=== PATIENT | female | born 1965 | race Caucasian/White ===

== ENCOUNTER → 2018-07-03 | Outpatient (CLI) | payer BC ==
[~2018-07-03] MED LIST: ALBU90OI6; Advil200 M1; FLUSAL1005 INH; Multiple Vitam1 EAC1; RANI150
== END ==
LOC: LAB SHORT 14:09 → LAB 14:09
DX: R30.0 Dysuria (principal)
CPT/HCPCS: 87086

== ENCOUNTER → 2018-07-07 | Outpatient (CLI) | payer BC | LOC: LAB 19:30 → LAB SHORT 19:30 | DX: R30.0 Dysuria (principal) | CPT/HCPCS: 87086 ==

== ENCOUNTER → 2019-03-04 | Outpatient (CLI) | payer BC | END | disposition home or self-care (01) | LOC: LAB SHORT 11:12 → LAB 11:12 | DX: R30.0 Dysuria (principal) | CPT/HCPCS: 87086 ==

== ENCOUNTER → 2019-03-12 | Outpatient (CLI) | payer BC | LOC: LAB SHORT 10:00 → LAB 10:00 | DX: R30.0 Dysuria (principal) | CPT/HCPCS: 87086 ==

== ENCOUNTER → 2019-04-01 | Outpatient (CLI) | payer BC | END | disposition home or self-care (01) | LOC: LAB 18:47 → LAB SHORT 18:47 | DX: R35.0 Frequency of micturition (principal) | CPT/HCPCS: 87086 ==

== ENCOUNTER 2020-06-23 07:55 | Day surgery (SDC) | payer BC ==
[~2020-06-23] VITALS: Ht 167.6 cm; Wt 76.5 kg
[2020-06-23] MEDS ORDERED: OMEP20ER (08:18)
[2020-06-23] MEDS ORDERED: MULTI-VITAMIN1 EAC2 (08:20)
--- NOTE | 2020-06-23 10:25 | NUR ---
06/23/20 1025 [place] DOCUMENTATION BY [email or web address]
== END 2020-06-23 10:22 | disposition home or self-care (01) ==
LOC: ORSCSDS 07:55
PROVIDERS: Internal Medicine Gastroenterology
PROC: 0DB58ZX Excision of Esophagus, Via Natural or Artificial Opening Endoscopic, Diagnostic (ICD-10-PCS; principal; 2020-06-23 09:00)
PROC: 0DB48ZX Excision of Esophagogastric Junction, Via Natural or Artificial Opening Endoscopic, Diagnostic (ICD-10-PCS; principal; 2020-06-23 09:00)
PROC: 0DJD8ZZ Inspection of Lower Intestinal Tract, Via Natural or Artificial Opening Endoscopic (ICD-10-PCS; principal; 2020-06-23 09:00)
DX: K21.9 Gastro-esophageal reflux disease without esophagitis (principal); K22.70 Barrett's esophagus without dysplasia; Z12.11 Encounter for screening for malignant neoplasm of colon; Z80.0 Family history of malignant neoplasm of digestive organs; K57.30 Diverticulosis of large intestine without perforation or abscess without bleeding; Z79.899 Other long term (current) drug therapy
CPT/HCPCS: 43239; G0105; 86803; 88305; 88312; J0330; J0461; J2405; J2704; J7120

== ENCOUNTER → 2021-05-18 | Outpatient (CLI) | payer BC ==
[~2021-05-18] MED LIST changes: +MULTI-VITAMIN1 EAC2; +OMEP20ER
== END ==
LOC: LAB SHORT 18:45 → LAB 18:45
DX: R30.9 Painful micturition, unspecified (principal)
CPT/HCPCS: 87086

== ENCOUNTER → 2022-01-11 | Outpatient (CLI) | payer BC | LOC: LAB 17:15 → LAB SHORT 17:15 | DX: R35.0 Frequency of micturition (principal) | CPT/HCPCS: 87086 ==

== ENCOUNTER → 2022-03-27 | Outpatient (CLI) | payer BC | END | disposition home or self-care (01) | LOC: LAB SHORT 08:42 → LAB 08:42 | DX: N39.0 Urinary tract infection, site not specified (principal) | CPT/HCPCS: 87077; 87086; 87186 ==

== ENCOUNTER → 2022-09-15 | Outpatient (CLI) | payer BC | LOC: LAB 08:15 → LAB SHORT 08:15 | DX: R30.0 Dysuria (principal) | CPT/HCPCS: 87086 ==

== ENCOUNTER 2022-10-23 21:44 | Emergency (ER) | payer BC ==
[~2022-10-23] VITALS: Ht 167.6 cm; Wt 76.2 kg
[2022-10-23 21:57] VITALS: BP 141/90
[2022-10-23 22:23] LABS: Source, Urine Clean Catch
[2022-10-23 22:28] LABS: Appearance, Urine Cloudy (Clear); Bilirubin, Urine Neg (Neg); Blood, Urine 5+ (Neg); Color, Urine Yellow (P-Yellow); Glucose Qualitative, Urine Neg (Neg); Ketones, Urine Neg (Neg); Leukocyte Esterase, Urine 3+ (Neg); Nitrite, Urine Pos (Neg); Protein, Urine 2+ (Neg); Urobilinogen, Urine 1+ (Normal)
[2022-10-23 23:07] LABS: Bacteria Many /hpf; Red Blood Cells, Urine TNTC /hpf (0-2); Squamous Epithelial Cells Few /hpf (Few); White Blood Cells, Urine 50-100 /hpf (0-5)
[2022-10-23] MEDS ORDERED: CEPH500 PO (23:10)
== END 2022-10-23 23:21 | disposition home or self-care (01) ==
LOC: ER 21:44
PROVIDERS: Physician Assistant
DX: S43.401A Unspecified sprain of right shoulder joint, initial encounter (principal); N39.0 Urinary tract infection, site not specified; X50.0XXA Overexertion from strenuous movement or load, initial encounter; Z88.8 Allergy status to other drugs, medicaments and biological substances; Z79.51 Long term (current) use of inhaled steroids; Z79.1 Long term (current) use of non-steroidal anti-inflammatories (NSAID); Z79.899 Other long term (current) drug therapy
CPT/HCPCS: 81001; 87077; 87086; 87186; 99283; A9270

== ENCOUNTER → 2023-01-09 | Outpatient (CLI) | payer BC ==
[~2023-01-09] MED LIST changes: +CEPH500 PO
== END | disposition home or self-care (01) ==
LOC: LAB 08:25 → LAB SHORT 08:25
DX: R30.0 Dysuria (principal)
CPT/HCPCS: 87086

== ENCOUNTER → 2023-04-08 | Outpatient (CLI) | payer BC | END | disposition home or self-care (01) | LOC: LAB 14:49 → LAB SHORT 14:49 | DX: R30.0 Dysuria (principal) | CPT/HCPCS: 87086 ==

== ENCOUNTER → 2023-12-02 | Outpatient (CLI) | payer BC | LOC: LAB 17:07 → LAB SHORT 17:07 | DX: N39.0 Urinary tract infection, site not specified (principal) | CPT/HCPCS: 87086 ==

== ENCOUNTER → 2025-01-25 | Outpatient (CLI) | payer BC ==
[2025-01-25 16:08] LABS: Source, Urine Clean Catch
[2025-01-25 18:58] LABS: Bilirubin, Urine Neg (Neg); Color, Urine Yellow (P-Yellow); Glucose Qualitative, Urine Neg (Neg); Ketones, Urine Neg (Neg); Leukocyte Esterase, Urine Neg (Neg); Protein, Urine Neg (Neg); Specific Gravity, Urine 1.020 (1.003-1.022); Urobilinogen, Urine NORM (Normal)
== END | disposition home or self-care (01) ==
LOC: LAB SHORT 16:07 → LAB 16:07
PROVIDERS: Naturopath
DX: N39.0 Urinary tract infection, site not specified (principal)
CPT/HCPCS: 81003; 87086